=== PATIENT | female | born 1950 | race Caucasian/White ===

== ENCOUNTER 2018-02-15 15:00 | Inpatient (IN) | payer OTHER ==
[~2018-02-15] VITALS: Ht 160 cm; Wt 50.8 kg
--- NOTE | 2018-02-15 15:42 | ED GENERAL ADULT ---
History of Present Illness General Chief Complaint: Lower Extremity Injury Stated Complaint: LEFT LEG PAIN NO INJURY Source: patient, family Exam Limitations: no limitations Vital Signs & Intake/Output Vital Signs & Intake/Output Vital Signs Date Time Temp Pulse Resp B/P B/P Pulse O2 O2 Flow FiO2 Mean Ox Delivery Rate 02/17 0914 68 102/68 02/17 0355 98.0 73 20 104/68 98 02/17 0223 99.5 73 20 102/58 95 02/16 2300 98.4 74 18 102/60 96 Room Air 02/16 2100 98.0 68 18 106/66 99 Room Air 02/16 1447 98.4 67 18 110/60 96 Room Air ED Intake and Output 02/17 0000 02/16 1200 Intake Total 1225 600 Output Total Balance 1225 600 Intake, IV 1225 600 Allergies Coded Allergies: No Known Allergies (02/15/18) Triage Note: PT BIBA FROM HOME FOR C/C OF LEFT HIP PAIN. TWO WEEKS AGO PT FELT DISCOMFORT IN HER HIP AND THEN WENT TO ORTHO NOW WHO GAVE PT EXERCISES TO DO ON FRIDAY. TODAY, PT WAS UNABLE TO WALK NORMALLY. PT DOES HAVE OBVIOUS L LEFT ROTATION. BROUGHT COPY OF XRAY'S FROM ORTHO CLINIC THAT SHOWS A FRACTURE. Triage Nurses Notes Reviewed? yes Onset: Gradual Duration: day(s): Timing: recent history Severity Numbers: 9 HPI: Patient is a 67-year-old female presents the emergency department brought in by ambulance from [facility] in [place]. Patient states she has had gradual worsening left hip pain for the past 2 weeks radiating down her left groin. 2 days ago she went to a walk-in or [facility] where she was given an anti-inflammatory cream and exercises for strengthening. The pain became unbearable forcing her to go to [facility] today which she received x-rays for the first time revealing a left femoral neck fracture and DJD. Patient cannot weight-bear at this time, states pain is 9/10 on the pain scale. She has taken no medications at this point. Past medical surgical history are unremarkable she has no known drug allergies. She was sent here for a surgical consult with Dr. Jose Nolen. (Carlos RAO,Amilcar) Reconcile Medications Aspirin (Ecotrin*) 81 MG TABLET.DR 1 TAB PO DAILY heart health (Reported) Aspirin (Ecotrin*) 81 MG TABLET.DR 1 TAB PO BID ANTICOAGULATION Docusate Sodium (Colace) 100 MG CAPSULE 1 CAP PO BID CONSITPATION DISCONTINUE USE IF YOU DEVELOP LOOSE STOOL OR DIARRHEA Hydromorphone HCl (Dilaudid) 2 MG TABLET 1-2 TAB PO Q4-6 PRN PRN PAIN Losartan Potassium (Cozaar) 50 MG TABLET 1 TAB PO DAILY htn (Reported) Multiple Vitamin (Multivitamins) 1 EACH TABLET 1 TAB PO DAILY supplement ( Reported) Omeprazole Magnesium (Prilosec Otc) 20 MG TABLET.DR 1 TAB PO DAILY GI PROTECTION Polyethylene Glycol 3350 (Miralax) 17 GRAM POWD.PACK 1 PAC PO DAILY CONSTIPATION dissolve in water, DISCONTINUE USE IF YOU DEVELOP LOOSE STOOL OR DIARRHEA (Umberto Redd DO) Past History Travel History Traveled to [place] past 21 day No Medical History Any Pertinent Medical History? 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 No (Amilcar Junior) Review of Systems Review of Systems Constitutional: Denies: chills, diaphoresis, fever. EENTM: Denies: blurred vision, double vision, visual changes. Respiratory: Denies: cough, hemoptysis, short of breath. Cardiovascular: Denies: chest pain, edema, orthopena, palpitations. GI: Denies: abdominal pain, constipation, diarrhea. Genitourinary: Reports: no symptoms. Musculoskeletal: Reports: joint pain, muscle pain, muscle stiffness. Neurological/Psychological: Denies: numbness, paresthesia. (Amilcar Junior) Physical Exam Physical Exam General Appearance: well developed/nourished, no apparent distress, alert, awake , mild distress Head: atraumatic, normal appearance Eyes: Bilateral: normal appearance. Ears, Nose, Throat: hearing grossly normal Neck: normal inspection, supple, full range of motion Respiratory: chest non-tender, no respiratory distress Cardiovascular: regular rate/rhythm, normal peripheral pulses Extremities: limited range of motion Comments: Patient's left hip is obviously shortened and externally rotated. No manipulations or active movements will be attempted secondary to x-ray findings. Core Measures ACS in differential dx? No CVA/TIA Diagnosis: No Sepsis Present: No Sepsis Focused Exam Completed? No (Amilcar Junior) Progress Differential Diagnoses I considered the following diagnoses in my evaluation of the patient: [Left femoral neck fracture, osteoarthritis, avascular necrosis, sprain/strain, muscle tightness/spasm,] Plan of Care: Orders Procedure Date/time Status CBC WITHOUT DIFFERENTIAL 02/17 600 Active BASIC ELECTROLYTES PLUS BUN&CR 02/17 600 Active MISSING MEDICATION FORM 02/17 UNK Active Regular Diet 02/16 D Active VTE Mechanical Prophylaxis 02/16 UNK Active Activity/Ambulation 02/16 UNK Active Current Medications Sig/Efrain Start time Last Medication Dose Stop Time Status Admin Atorvastatin Calcium 20 MG 1700 02/17 1700 CAN (Lipitor) Losartan Potassium 50 MG DAILY 02/17 0900 AC 02/17 (Cozaar) 0914 Polyethylene Glycol 17 GM DAILY 02/17 0900 AC 02/17 (Miralax) 0859 Rosuvastatin Calcium 5 MG DAILY 02/17 0900 AC 02/17 (Crestor) 0858 Omeprazole 40 MG DAILY AC 02/17 0700 AC 02/17 (Prilosec) 0641 Aspirin Buffered 81 MG BID 02/16 2100 AC 02/17 (Ecotrin) 0859 Docusate Sodium 100 MG BID 02/16 2100 AC 02/17 (Colace) 0859 Acetaminophen 650 MG Q4P PRN 02/16 1715 AC (Tylenol) Hydromorphone HCl 2 MG Q4P PRN 02/16 1700 AC (Dilaudid) Hydromorphone HCl 4 MG Q4P PRN 02/16 1700 AC 02/17 (Dilaudid) 0641 Morphine Sulfate 2 MG Q2P PRN 02/15 1630 AC (MORPHINE SULFATE) Ondansetron HCl 4 MG Q6P PRN 02/15 1630 AC (Zofran) Promethazine HCl 12.5 MG Q6P PRN 02/15 1630 AC (Phenergen) 02/22 1629 67-year-old female presents to the emergency room with x-rays and hand, she is brought in by ambulance from [facility] in [place] this afternoon. Patient states she has had worsening hip pain for the past 2 weeks which is increased in the past 2 days prompting her to receive x-rays today which revealed a left femoral neck fracture with moderate to severe DJD in the left hip. Orthopedics was consulted, specifically Dr. Jose Haro. Orders were put in place for probable surgical correction. Ortho consulted whom agree with giving 1 g of IV Tylenol every 8 hours as needed until patient arrives to floor. Admit orders were placed by the orthopedic PA at approximately 4:30 PM Initial ED EKG: none (Amilcar Junior) Departure Departure Disposition: STILL A PATIENT Condition: Stable Clinical Impression Primary Impression: Femoral neck fracture Referrals: Unknown (PCP/Family) Departure Forms: Customer Survey General Discharge Information (Amilcar Junior) Departure Prescriptions: Current Visit Scripts Aspirin (Ecotrin*) 1 TAB PO BID #60 TAB Docusate Sodium (Colace) 1 CAP PO BID #14 CAP DISCONTINUE USE IF YOU DEVELOP LOOSE STOOL OR DIARRHEA Polyethylene Glycol 3350 (Miralax) 1 PAC PO DAILY #7 PAC dissolve in water, DISCONTINUE USE IF YOU DEVELOP LOOSE STOOL OR DIARRHEA Omeprazole Magnesium (Prilosec Otc) 1 TAB PO DAILY #30 TAB Hydromorphone HCl (Dilaudid) 1-2 TAB PO Q4-6 PRN PRN PAIN #36 TAB Admission Note Spoke With: Shola Nolen MD Documentation of Exam: Documentation of any treatments & extenuating circumstances including Concerns Regarding Discharge (functional status, medication knowledge or non-compliance, living conditions, etc.) that warrant an admission rather than observation: [The patient needs to be admitted for severe pain and inability to bear weight requiring IV narcotics for pain control and operative repair of her hip fracture ] I saw and personally examined the patient and I agree with the PAs evaluation PA/ICE CREAM CHEF Co-Sign Statement Statement: ED Attending supervision documentation- [x] I saw and evaluated the patient. I have also reviewed all the pertinent lab results and diagnostic results. I agree with the findings and the plan of care as documented in the PA's/ICE CREAM CHEF's documentation. [] I have reviewed the ED Record and agree with the PA's/ICE CREAM CHEF's documentation. [] Additions or exceptions (if any) to the PAs/ICE CREAM CHEF's note and plan are summarized below: [] (Umberto Redd DO) Critical Care Note Critical Care Note Critical Care Time: non-applicable (Amilcar Junior) ED Attending Observation Initial Observation Note: I have seen and personally examined ARIANA CUTLER on 02/15/18 at 1658. I agree with the current emergency department documentation. The disposition (admission or discharge) is uncertain at this time, she needs a period of observation for the following reason(s): The ED Nurse caring for this patient has been personally informed as to what the patient is being observed for. (Amilcar Junior)
[2018-02-15 15:53] LABS: PT 12.3 SEC (9.4-12.5)
[2018-02-15 15:54] LABS: PTT 29 SEC (25-37)
[2018-02-15 15:55] LABS: ABSOLUTE BASOPHIL COUNT 0.1 /CUMM (0.0-0.2); ABSOLUTE EOSINOPHIL COUNT 0 /CUMM (0.0-0.7); ABSOLUTE GRANULOCYTE CT 5.8 /CUMM (1.4-6.5); ABSOLUTE MONOCYTE COUNT 0.5 /CUMM (0.10-0.60); BASOPHIL % 0.8 % (0.0-2.0); EOSINOPHIL % 0.5 % (0-5); MEAN CORPUSCULAR HGB CONC 33.8 G/DL (33.0-37.0); MEAN CORPUSCULAR VOLUME 88.7 FL (81.0-99.0); PLATELET COUNT 320 /CUMM (130-400); RBC DISTRIBUTION WIDTH 14.3 % (11.5-14.5); RED BLOOD CELL CT 3.95 /CUMM (4.20-5.40); WHITE BLOOD CELL COUNT 7.4 /CUMM (4.8-10.8)
--- NOTE | 2018-02-15 16:22 | History & Physical Pre-Op ---
General Information and [facility] MD Statement: I have seen and personally examined PADMAJA CUTLER and documented this H&P. The patient is a 67 year old F who presented with a patient stated chief complaint of [LEFT HIP PAIN]. Source of Information: patient Exam Limitations: no limitations History of Present Illness: Padmaja is a very pleasant 67 year old female who presents to the ER today with complaints of left hip pain. Earlier today she was seen at [facility], an outpatient orthopedic clinic in [place], [place], and radiographs were obtained which showed evidence of a displaced femoral neck fracture. The sequence of events leading up to this fracture are multifactorial, she did not sustain one particular traumatic event. Per her recollection, approximately two weeks ago she was participating in an [employer] fitness class which included a weight lifting excercise that involved squatting and overhead weight lifting, she noticed some discomfort in her left groin and reduced her activity level. She then states that approximately one and one half weeks later, she was attempting to cee her dog who was involved in an altercation with another dog and her legs gave out, she did not fall, but noticed worsening discomfort. The following day she attempted to be seen at a different orthopedic clinic but chose to forego an exam due to length of wait. She returned to the clinic the next morning, was evaluated without radiographs, and was given some exercises to do. She found the exercises painful and was unable to walk around that day or the following day. Earlier today she was evaluated at [facility] and sent here to be admitted to Dr. Nolen's service. Her preinjury level of activity is high. She states that she belongs to two gyms and often works out twice daily. Activities include running, elliptical and rower, in addition to weight lifting. She denies any past medical or surgical history aside from ild hypertension and hyperlipidemia. She did mention that she was diagnosed with borderline anemia recently and was unable to donate blood. She was given slow Fe for treatement but was unable to tolerate the gi related side effects, mainly constipation. When asked about osteoporosis, she denies ever having bone density scan. She states she has never been told she is osteoporotic, only notes that she has osteoarthritis in various joints including hips and shoulders. From a medication standpoint, she is on daily losartan 50mg, a baby aspirin daily as well as a multivitamin, calcium supplement and tumeric. She inconsistently takes her statin for mild hyperlipidemia. She denies any allergies. Allergies/Medications Allergies: Coded Allergies: No Known Allergies (02/15/18) Home Med list Aspirin (Ecotrin*) 81 MG TABLET.DR 1 TAB PO DAILY heart health (Reported) Aspirin (Ecotrin*) 81 MG TABLET.DR 1 TAB PO BID ANTICOAGULATION Docusate Sodium (Colace) 100 MG CAPSULE 1 CAP PO BID CONSITPATION DISCONTINUE USE IF YOU DEVELOP LOOSE STOOL OR DIARRHEA Hydromorphone HCl (Dilaudid) 2 MG TABLET 1-2 TAB PO Q4-6 PRN PRN PAIN Losartan Potassium (Cozaar) 50 MG TABLET 1 TAB PO DAILY htn (Reported) Multiple Vitamin (Multivitamins) 1 EACH TABLET 1 TAB PO DAILY supplement ( Reported) Omeprazole Magnesium (Prilosec Otc) 20 MG TABLET.DR 1 TAB PO DAILY GI PROTECTION Polyethylene Glycol 3350 (Miralax) 17 GRAM POWD.PACK 1 PAC PO DAILY CONSTIPATION dissolve in water, DISCONTINUE USE IF YOU DEVELOP LOOSE STOOL OR DIARRHEA Past History Medical History Neurological: NONE EENT: NONE Cardiovascular: NONE Respiratory: NONE Gastrointestinal: NONE Hepatic: NONE Renal: NONE Musculoskeletal: ARTHRITIS Psychiatric: NONE Endocrine: NONE Blood Disorders: NONE Cancer(s): NONE POND SAWYER/Reproductive: NONE Surgical History Pertinent Surgical History: none Past Family/Social History Psychosocial History Where Do You Live? Home ETOH Use: denies use Illicit Drug Use: denies illicit drug use Functional Ability ADLs Independent: dressing, eating, toileting, bathing. Ambulation: independent IADLs Independent: shopping, housework, finances, food prep, telephone, transportation , medication admin. Review of Systems Review of Systems Constitutional: Reports: see HPI. EENTM: Reports: no symptoms. Cardiovascular: Reports: no symptoms. Respiratory: Reports: no symptoms. GI: Reports: constipation (only with iron supplement). Genitourinary: Reports: no symptoms. Musculoskeletal: Reports: see HPI, joint pain. Skin: Reports: no symptoms. Neurological/Psychological: Reports: no symptoms. Hematologic/Endocrine: Reports: no symptoms. Immunologic/Allergic: Reports: no symptoms. All Other Systems: Reviewed and Negative Exam & Diagnostic Data Last 24 Hrs of Vital Signs/I&O Vital Signs Date Time Temp Pulse Resp B/P B/P Pulse O2 O2 Flow FiO2 Mean Ox Delivery Rate 02/15 1526 Room Air Room Air 02/15 1508 98.2 65 15 135/90 95 Room Air Room Air Intake & Output 02/15 1600 02/15 0800 02/15 0000 Intake Total 0 Output Total Balance 0 Intake, Oral 0 Patient 112 lb Weight Weight Reported by Patient Measurement Method Physical Exam: General: Alert and oriented x3, no acute distress Cardiac: rrr, s1s2 Pulm: cta Abdomen: non-tender, non-distended Extremties: Moves all extremities, neurovascular status grossly intact. Left hip tender to palpation, left leg minimally shortend with mild external rotation. Skin integrity intact, some bruising noted. Thigh compartment soft, no concern for compartment syndrome at the present time. Assessment/Plan Assessment/Plan: This is a 67 year old female with no known medical history who presents to ER today for evaluation and management of a hip fracture that she sustained in all likelihood two weeks ago when working out. She noted worsened difficulty ambulating over the past two to three days, radiographs showed evidence of a displaced femoral neck fracture. Dr. Nolen has reviewed radiographs and has accepted admission of this patient to his service. -EKG, CXR -CBC, BEP, INR, T&S -medical consult for preoperative clearance -NPO p mn, will start iv fluids -IV tylenol/morphine for pain -Nonweightbearing pre op -Surgery tomorrow, zachary-arthroplasty versus SHANTHI, to be determined by Dr. Nolen As Ranked By This Provider Problem List: 1. Femoral neck fracture
[2018-02-15] MEDS ORDERED: COZAAR50 M1 PO (16:25)
[2018-02-15] MEDS ORDERED: ASPIRIN EC81 M1 PO (16:25)
[2018-02-15] MEDS ORDERED: MULTIVITAMINS1 EAC9 PO (16:26)
--- NOTE | 2018-02-15 16:27 | Admission Core Measures ---
Acute Coronary Syndrome (CM) ACS Core Measures Acute Coronary Syndrome Diagnosis No Congestive Heart Failure (NEW) CHF Core Measures Congestive Heart Failure Diagnosis No Cerebrovascular Accident CVA Core Measures CVA/TIA Diagnosis No Venous Thromboembolism VTE Core Dottie (View Protocol) VTE Risk Factors Surgery No Mechanical VTE Prophylaxis d/t N/A MechProphylax Ordered No VTE Pharm Prophylaxis d/t NA PharmProphylax ordered Problem List As ranked by this Provider includes Assessment & Plan 1. Femoral neck fracture HOME MEDS Home Med List Aspirin (Ecotrin*) 81 MG TABLET.DR 1 TAB PO DAILY heart health (Reported) Losartan Potassium (Cozaar) 50 MG TABLET 1 TAB PO DAILY htn (Reported) Multiple Vitamin (Multivitamins) 1 EACH TABLET 1 TAB PO DAILY supplement ( Reported)
--- NOTE | 2018-02-15 17:58 | RADIOLOGY REPORT ---
EXAMINATION: XR PORTABLE CHEST CLINICAL INFORMATION: Hip fracture COMPARISON: None TECHNIQUE: Portable frontal view of the chest was obtained. FINDINGS: No significant abnormality is noted involving the heart, lungs, mediastinum, bony thorax or soft tissues. IMPRESSION: No acute pulmonary disease.
[2018-02-15 18:15] VITALS: BP 120/68
--- NOTE | 2018-02-15 22:23 | Cons- Medical ---
Bala Loyd 02/15/18 2206: General Information and HPI Consulting Request Date of Consult: 02/15/18 Requested By: Shola Nolen MD Reason for Consult: Medical clearance for hip surgery Source of Information: patient Exam Limitations: no limitations History of Present Illness: This is a 67-year-old female with past medical history significant for hypertension, hyperlipidemia, arthritis presented to the hospital with chief complaint of left hip pain for 2 weeks. Medical team was requested for clearance before left hip surgery. Patient has a left hip pain for 2 weeks, acutely worsened over 2 days, which made her to come to the hospital for evaluation. Patient reports that she denies any traumatic event. Of note she states that 3 weeks ago when she was at gym doing weight lifting exercise she notices some discomfort in her left groin and then she reduced her activity level. She then states that approximately one and one half weeks later, she was attempting to cee her dog who was involved in an altercation with another dog and her legs gave out, she did not fall, but noticed worsening discomfort. She Went to outpatient clinic for her left hip pain, she was told to do some exercises. However given worsening and deteriorating pain, she went to Ortho clinic on Friday, x-ray left hip was done which showed femoral neck fracture. She was sent to ER for admission for hip surgery by Dr. alberto. Review of systems she denied any fever, chills, cough, chest pain, palpitations, nausea, vomiting, diarrhea, change in recent bladder or bowel habits. She denies smoking, alcohol abuse, illicit drug abuse. She has history of hypertension, takes losartan 50 daily and hyperlipidemia takes rosuvastatin 5 mg daily. She has history of osteoarthritis of various joints. However she never had any bone scan. Allergies/Medications Allergies: Coded Allergies: No Known Allergies (02/15/18) Home Med List: Aspirin (Ecotrin*) 81 MG TABLET.DR 1 TAB PO DAILY heart health (Reported) Losartan Potassium (Cozaar) 50 MG TABLET 1 TAB PO DAILY htn (Reported) Multiple Vitamin (Multivitamins) 1 EACH TABLET 1 TAB PO DAILY supplement ( Reported) Current Medications: Current Medications Sig/Efrain Start time Last Medication Dose Route Stop Time Status Admin Acetaminophen 0 .STK-MED ONE 02/16 1736 DC IV Acetaminophen 1,000 MG Q8P PRN 02/15 1730 AC 02/15 IV 1738 Dextrose/Sodium 1,000 ML Q13H 02/16 0000 AC Chloride IV Dextrose/Sodium 1,000 ML .[id number] 02/15 1630 DC Chloride IV Morphine Sulfate 4 MG Q2P PRN 02/15 1730 AC 02/15 IV 2203 Morphine Sulfate 2 MG Q2P PRN 02/15 1630 AC IV Ondansetron HCl 4 MG Q6P PRN 02/15 1630 AC IV Promethazine HCl 12.5 MG Q6P PRN 02/15 1630 AC IV 02/22 1629 Review of Systems Review of Systems Constitutional: Denies: chills, diaphoresis, fever, malaise, weakness, unexplained weight loss. EENTM: Denies: blurred vision, double vision, visual changes. Cardiovascular: Denies: chest pain, edema, orthopena, palpitations, peripheral edema, syncope. Respiratory: Denies: cough, hemoptysis, orthopnea, short of breath, sputum production, stridor. GI: Denies: abdominal pain, bloating, constipation, diarrhea, distention. Genitourinary: Denies: discharge, dysuria, frequency, hematuria. Musculoskeletal: Reports: joint pain. Denies: back pain, gout. Skin: Denies: erythema, jaundice. Neurological/Psychological: Denies: anxiety, emotional problems, headache, numbness. Past History Travel History Traveled to [place] past 21 day No Medical History Blood Transfusion Hx: No Neurological: NONE EENT: NONE Cardiovascular: NONE Respiratory: NONE Gastrointestinal: NONE Hepatic: NONE Renal: NONE Musculoskeletal: ARTHRITIS Psychiatric: NONE Endocrine: NONE Blood Disorders: NONE Cancer(s): NONE PINION STAKER/Reproductive: NONE Surgical History Surgical History: 1 Psychosocial History Where Do You Live? Home Smoking Status: Never Smoked ETOH Use: denies use Illicit Drug Use: denies illicit drug use Functional Ability ADLs Independent: dressing, eating, toileting, bathing. Ambulation: independent IADLs Independent: shopping, housework, finances, food prep, telephone, transportation , medication admin. Exam & Diagnostic Data Last 24 Hrs of Vital Signs/I&O Vital Signs Date Time Temp Pulse Resp B/P B/P Pulse O2 O2 Flow FiO2 Mean Ox Delivery Rate 02/15 1815 98.6 62 20 120/68 97 Room Air 02/15 1720 98.1 68 15 138/79 98 Room Air Room Air 02/15 1526 Room Air Room Air 02/15 1508 98.2 65 15 135/90 95 Room Air Room Air Intake & Output 02/15 1600 02/15 0800 02/15 0000 Intake Total 0 Output Total Balance 0 Intake, Oral 0 Patient 50.802 kg Weight Weight Reported by Patient Measurement Method Physical Exam General Appearance: well developed/nourished, no apparent distress, alert, awake , anxious Head: atraumatic, normal appearance Respiratory: normal breath sounds, chest non-tender, no respiratory distress, quiet respiration, lungs clear Cardiovascular: regular rate/rhythm, normal peripheral pulses Gastrointestinal: normal bowel sounds, soft, non-tender, no organomegaly Extremities: normal inspection, normal capillary refill, normal range of motion, no edema Other Physical Findings: Left hip tender to palpation, left leg minimally shortend with mild external rotation. Last 24 Hrs of Labs/Bernabe: Laboratory Tests 02/15/18 1535: Anion Gap 11, Estimated GFR > 60, BUN/Creatinine Ratio 38.3 H, Glucose 93, Calcium 10.3 H, Total Bilirubin 0.7, AST 37 H, ALT 34, Alkaline Phosphatase 68 , Total Protein 7.0, Albumin 4.4, Globulin 2.6, Albumin/Globulin Ratio 1.7, PT 12.3, INR 1.13, APTT 29, CBC w Diff NO MAN DIFF REQ, RBC 3.95 L, MCV 88.7, MCH 30.0, MCHC 33.8, RDW 14.3, MPV 8.0, Gran % 79.0 H, Lymphocytes % 13.3 L, Monocytes % 6.4, Eosinophils % 0.5, Basophils % 0.8, Absolute Granulocytes 5.8, Absolute Lymphocytes 1.0 L, Absolute Monocytes 0.5, Absolute Eosinophils 0, Absolute Basophils 0.1 Assessment/Plan Assessment/Plan This is a 67-year-old female with past medical history significant for hypertension, hyperlipidemia, arthritis presented to the hospital with chief complaint of left hip pain for 2 weeks. Medical team was requested for clearance of left hip surgery given evidence of displaced left femoral neck fracture. Vitals afebrile, heart rate 65, respiratory rate 15, blood pressure 130/90, saturating at 95 on room air Labs WBC 7, hemoglobin 11 and hematocrit 35, platelets 320 Sodium 139, potassium 4.1, BUN 23 and creatinine 0.6 LFTs normal limit Chest x-ray no acute cardiopulmonary findings 1. Left femoral neck fracture Patient presented with acute on chronic worsening left hip pain for 2 weeks. Outpatient x-ray showed displaced left femoral neck fracture. She was admitted under surgical service, planning hemiarthroplasty on 02/16/2018. Calculated RCR index-not high risk surgery, no history of ischemic heart disease , no history of heart failure, no history of TIA or stroke, not on insulin, creatinine less than 2-she has 0.4% risk of major cardiac event after the surgery. METS- She can do heavy work around the house, such as scrubbing floors or lifting or moving heavy furniture, or climb two flights of stairs, weightlifting at the gym, swimming with out getting short of breath 10 METS. * She is medically optimized for left hip surgery * Monitor vitals every shift * N.p.o. tonight * IV fluids * Adequate pain management * Follow-up primary team recommendations * CBCs, BEP, INR is normal limit * Please check baseline troponin and EKG prior to the surgery * Continue her home medications Hypertension continue losartan 50 daily Hyperlipidemia continue rosuvastatin 5 mg daily Continue aspirin 81 daily Full code DVT prophylaxis per primary team Problem List: 1. Femoral neck fracture Consult Acknowledgment - Thank you for your consult request. Yonny ZARATE,Dedrick Richard 02/16/18 0609: Assessment/Plan Consult Acknowledgment - Thank you for your consult request. Attending MD Review Statement Attending Statement Attending MD Statement: examined this patient, discuss w/resident/PA/WATER AEROBICS INSTRUCTOR, agreed w/resident/PA/WATER AEROBICS INSTRUCTOR Attending Assessment/Plan: 67 year-old female presents sent from outpatient orthopedic clinic for imaging evidence of a displaced femoral neck fracture. Seems a series of events over the last few weeks could be implicated: a particularly intensive workout at [employer] and an attempt to disengage her dog from an altercation seem to be chief amongst them. She was noticing groin discomfort that was limiting her usual activity levels. She is quite active at baseline, and does not appear limited from a cardiopulmonary standpoint in any fashion. She has no previous history of coronary artery disease, congestive heart failure, or pulmonary disease. Hypertension is controlled with EJ-I. EKG and CXR were reviewed and found to be without abnormality requiring intervention. She gives no history to suggest elevated risk with regard to proceeding to surgery, whether it be zachary- arthroplasty or total hip. She is not on a beta tk as an outpatient, and thus would not recommend starting one in the taya-operative setting. She is an acceptable risk to proceed to surgery without need for additional consultation or provocative testing. Stoney Blancas MD
[2018-02-15 22:36] VITALS: BP 102/68
[2018-02-16 07:09] VITALS: BP 100/70
--- NOTE | 2018-02-16 07:49 | PN- Medicine Consult ---
Poncho Cohen 02/16/18 0748: Assessment/PlanMedical Consult Assessment/Plan Assessment: This is a 67-year-old female with past medical history significant for hypertension, hyperlipidemia, arthritis presented to the hospital with chief complaint of left hip pain for 2 weeks. Medical team was requested for clearance before left hip surgery. Patient has a left hip pain for 2 weeks prior to presentation, that acutely worsened over 2 days, which made her to come to the hospital for evaluation. She denies any traumatic event.However, she states that 3 weeks ago when she was at gym doing weight lifting exercise she notices some discomfort in her left groin and then she reduced her activity level. She then states that approximately one and one half weeks later, she was attempting to cee her dog who was involved in an altercation with another dog and her legs gave out, she did not fall, but noticed worsening discomfort. She Went to outpatient clinic for her left hip pain, she was told to do some exercises. However given worsening and deteriorating pain, she went to Ortho clinic on Friday, x-ray left hip was done which showed femoral neck fracture. She was sent to ER for admission for hip surgery by Dr. alberto. Plan: This is a 67-year-old female with past medical history significant for hypertension, hyperlipidemia, arthritis presented to the hospital with chief complaint of left hip pain for 2 weeks. Medical team was requested for clearance of left hip surgery given evidence of displaced left femoral neck fracture. Her vitals and labs are stable, she is NPO for zachary-arthroplasty versus SHANTHI. per Dr layton 1. Left femoral neck fracture * Ms Mcdaniels, presented with acute on chronic worsening left hip pain for 2 weeks. * Outpatient x-ray showed displaced left femoral neck fracture. * Currently NPO * Calculated RCR index-not high risk surgery, no history of ischemic heart disease, no history of heart failure, no history of TIA or stroke, not on insulin, creatinine less than 2-she has 0.4% risk of major cardiac event after the surgery. * METS- She can do heavy work around the house, such as scrubbing floors or lifting or moving heavy furniture, or climb two flights of stairs, weightlifting at the gym, swimming with out getting short of breath 10 METS. * She is medically optimized for left hip surgery. * B/p this am 100/70, ct iv fluids while NPO and ct to monitor BP. * Ct current pain management. * Follow-up primary team recommendations. * CBCs, BEP, INR on 02/15 normal limit. * Today morning labs not repeated, repeat CBC, BEP postop tmrw. * Continue her home medications Hypertension :holding losartan for today, can restart postop dependign on BP Hyperlipidemia continue rosuvastatin 5 mg daily Continue aspirin 81 daily, post op AC per ortho Full code DVT prophylaxis per primary team Problem List: 1. Femoral neck fracture Subjective Subjective: I have seen and examined her this morning, She seems to be doing okay. Left hip pain well controlled, but appears/worse with any kind of movement. She is a little uphappy that she is last on the OR list, but otherwise doesnt have any new complaints to offer, currently NPO for OR Review of Systems Constitutional: Reports: see HPI. Objective Last 24 Hrs of Vital Signs/I&O Vital Signs Date Time Temp Pulse Resp B/P B/P Pulse O2 O2 Flow FiO2 Mean Ox Delivery Rate 02/16 0709 97.1 64 18 100/70 96 02/15 2236 98.7 66 18 102/68 95 Room Air 02/15 1815 98.6 62 20 120/68 97 Room Air 02/15 1720 98.1 68 15 138/79 98 Room Air Room Air 02/15 1526 Room Air Room Air 02/15 1508 98.2 65 15 135/90 95 Room Air Room Air Intake & Output 02/16 0800 02/16 0000 02/15 1600 Intake Total 600 200 0 Output Total Balance 600 200 0 Intake, IV 600 Intake, Oral 200 0 Patient 50.802 kg 50.802 kg Weight Weight Reported by Patient Reported by Patient Measurement Method Current Medications: Current Medications Sig/Efrain Start time Last Medication Dose Route Stop Time Status Admin Acetaminophen 0 .STK-MED ONE 02/15 1736 DC IV Acetaminophen 1,000 MG Q8P PRN 02/15 1730 AC 02/15 IV 1738 Dextrose/Sodium 1,000 ML Q13H 02/16 0000 AC 02/16 Chloride IV 0051 Dextrose/Sodium 1,000 ML .[id number] 02/15 1630 DC Chloride IV Morphine Sulfate 4 MG Q2P PRN 02/15 1730 AC 02/15 IV 2203 Morphine Sulfate 2 MG Q2P PRN 02/15 1630 AC IV Ondansetron HCl 4 MG Q6P PRN 02/15 1630 AC IV Promethazine HCl 12.5 MG Q6P PRN 02/15 1630 AC IV 02/22 1629 Results Last 24 Hrs Lab/Bernabe Results: Laboratory Tests 02/15/18 1535: Anion Gap 11, Estimated GFR > 60, BUN/Creatinine Ratio 38.3 H, Glucose 93, Calcium 10.3 H, Total Bilirubin 0.7, AST 37 H, ALT 34, Alkaline Phosphatase 68 , Total Protein 7.0, Albumin 4.4, Globulin 2.6, Albumin/Globulin Ratio 1.7, PT 12.3, INR 1.13, APTT 29, CBC w Diff NO MAN DIFF REQ, RBC 3.95 L, MCV 88.7, MCH 30.0, MCHC 33.8, RDW 14.3, MPV 8.0, Gran % 79.0 H, Lymphocytes % 13.3 L, Monocytes % 6.4, Eosinophils % 0.5, Basophils % 0.8, Absolute Granulocytes 5.8, Absolute Lymphocytes 1.0 L, Absolute Monocytes 0.5, Absolute Eosinophils 0, Absolute Basophils 0.1 Evin ZARATE,[facility] 02/16/18 1203: Attending MD Review Statement Attending Sign Off Attending Cosign Statement: I have: examined this patient, reviewed [facility] EMR data, personally reviewd images, discussd w/resident/PA/PART TIME RECEPTIONIST, discussed mgmt plan w/[place], discussed mgmt plan w/pt, agreed w/resident/PA/PART TIME RECEPTIONIST, amended to note. Other Findings: Patient seen and examined, doing okay. She is not complaining of any pain if she does not move. Her vital signs are stable. As noted in the resident note, patient has 0.4% risk of major cardiac event. She also has good MET scoring. We recommend to continue patient's home medications. Otherwise no further cardiac testing is indicated at this time prior to her surgery. Will encourage early physical therapy and incentive spirometry after the surgery.
[2018-02-16 14:47] VITALS: BP 110/60
[2018-02-16] MEDS ORDERED: PRILOSEC OTC20 M1 PO (17:08)
[2018-02-16] MEDS ORDERED: MIRALAX17 G1 PO (17:08)
[2018-02-16] MEDS ORDERED: DILAUDID2 M1 PO (17:08)
[2018-02-16] MEDS ORDERED: ASPIRIN EC81 M1 PO (17:08)
[2018-02-16] MEDS ORDERED: COLACE100 M1 PO (17:08)
--- NOTE | 2018-02-16 17:10 | Patient Discharge Instructions ---
Discharge Instructions General Discharge Information You were seen/treated for: Left hip femoral neck fracture You had these procedures: Left total hip replacement Watch for these problems: Increasing pain despite the use of pain medication Increasing redness, warmth or swelling Drainage of any type from incision Inability to bear weight on operative leg Persistent nausea and vomiting Fever greater than 101.5 degrees Do not soak the wound: Yes No bath, but you may shower: Yes Other wound care: Please keep wound clean and dry. No ointments or lotions of any type on or near incision at any time. No exceptions. Your dressing will be changed by your nurse on the second day after your surgery. Daily dry dressing changes are recommended each day thereafter. Do not soak your wound in a bath or pool at any time until otherwise indicated by your surgeon. You may shower, please dry wound immediately after shower with a clean towel. Special Instructions: Aspirin: You are taking this medication to help prevent blood clot formation. Please take with food to protect your stomach lining. Please take as directed. Constipation: Pain medication can cause constipation. Your surgeon has recommended that you take Colace and miralax each day. You may discontinue this medication if you develop loose stool or diarrhea. If you wish to continue this medication, it is available over the counter. If you are unable to move your bowels after several days, if you are unable to pass gas and are developing bloating, nausea, or vomiting as a result, please contact your doctor. Diet Continue normal diet: Yes Recommended Diet: Regular Additional DIET Information: Advance as tolerated Activity Full Activity/No Limits: No Activity Self Limited: Yes Pounds, do NOT lift more than: 10 Acute Coronary Syndrome Inclusion Criteria At DC or during hospital stay patient has or had the following: ACS DIAGNOSIS No Discharge Core Measures Meds if any: Prescribed or Continued at Discharge Meds if any: NOT Prescribed or Continued at Discharge Congestive Heart Failure Inclusion Criteria At DC or during hospital stay patient has or had the following: CHF DIAGNOSIS No Discharge Core Measures Meds if any: Prescribed or Continued at Discharge Meds if any: NOT Prescribed or Continued at Discharge Cerebrovascular accident Inclusion Criteria At DC or during hospital stay patient has or had the following: CVA/TIA Diagnosis No Discharge Core Measures Meds if any: Prescribed or Continued at Discharge Meds if any: NOT Prescribed or Continued at Discharge Venous thromboembolism Inclusion Criteria VTE Diagnosis No VTE Type NONE VTE Confirmed by (Test) NONE Discharge Core Measures - Per Current guidelines, there needs to be overlap - treatment for the first 5 days of Warfarin therapy. - If discharged on Warfarin prior to 5 days of - overlap therapy, the patient will need to be - assessed for post discharge needs including - *Post discharge parental anticoagulation - *Warfarin and/or parental anticoagulation education - *Follow up date to check INR post discharge At least 5 days overlap therapy as Inpatient No Meds if any: Prescribed or Continued at Discharge Note: Overlap Therapy is Warfarin and Anticoagulant Meds if any: NOT Prescribed or Continued at Discharge
--- NOTE | 2018-02-16 17:12 | Surgical Discharge Summary ---
Visit Information Visit Dates Admission Date: 02/15/18 History of Present Illness Chief Complaint: Left hip femoral neck fracture Medical History Blood Transfusion Hx: No Neurological: NONE EENT: NONE Cardiovascular: NONE Respiratory: NONE Gastrointestinal: NONE Hepatic: NONE Renal: NONE Musculoskeletal: ARTHRITIS Psychiatric: NONE Endocrine: NONE Blood Disorders: NONE Cancer(s): NONE IPHONE DEVELOPER/Reproductive: NONE History of MRSA: No History of VRE: No History of CDIFF: No Isolation History: Standard Surgical History Pertinent Surgical History: none Psychosocial History Where Do You Live? Home Who Do You Live With? Patient/Self What is Your Primary Language? Kyrgyz ETOH Use: denies use Review of Systems: See H&P Hospital Course Course Attending Physician: Shola Nolen MD Primary Care Physician: Unknown Hospital Course: Patient was admitted to the hospital with a left femoral neck fracture on 2017. The following day she underwent a total hip replacement. The procedure was tolerated well and patient was transferred to a general surgical floor. Diet was advanced and tolerated. The patient was evaluated and treated by physical therapy. At the time of hospital discharge, the vital signs were stable, neurovascular status was intact, and pain was controlled with the use of oral pain medications. Allergies: Coded Allergies: No Known Allergies (02/15/18) Disposition Summary Disposition Principal Diagnosis: Left hip femoral neck fracture Additional Diagnosis: None Discharge Disposition: home health services Discharge Instructions General Discharge Information Code Status: Full Code Patient's Diet: Regular. advance as tolerated Patient's Activity: WBAT Follow-Up Instructions/Appts: Follow up with Dr. Nolen in 6 weeks from date of surgery. Please call office to arrange &/or confirm this appointment. Medications at Discharge Discharge Medications: Stop taking the following medications: Aspirin (Ecotrin*) 81 MG TABLET. ORAL DAILY Continue taking these medications: Losartan Potassium (Cozaar) 50 MG TABLET 1 Tablet ORAL DAILY Multiple Vitamin (Multivitamins) 1 EACH TABLET 1 Tablet ORAL DAILY Start taking the following new medications: Aspirin (Ecotrin*) 81 MG TABLET. 1 Tablet ORAL TWICE DAILY Qty = 60 No Refills Docusate Sodium (Colace) 100 MG CAPSULE 1 Capsule ORAL TWICE DAILY Qty = 14 No Refills Instructions: DISCONTINUE USE IF YOU DEVELOP LOOSE STOOL OR DIARRHEA Polyethylene Glycol 3350 (Miralax) 17 GRAM POWD.PACK 1 Packet ORAL DAILY Qty = 7 No Refills Instructions: dissolve in water, DISCONTINUE USE IF YOU DEVELOP LOOSE STOOL OR DIARRHEA Omeprazole Magnesium (Prilosec Otc) 20 MG TABLET.DR 1 Tablet ORAL DAILY Qty = 30 No Refills Hydromorphone HCl (Dilaudid) 2 MG TABLET 1-2 Tablet ORAL EVERY 4-6 HOURS NEEDED as needed for PAIN Qty = 36 No Refills
--- NOTE | 2018-02-16 17:57 | Operative Report ---
Operative/Inv Procedure Report Surgery Date: 02/16/18 Name of Procedure: Left total hip replacement Pre-Operative Diagnosis: Left displaced femoral neck fracture Post-Operative Diagnosis: Same Estimated Blood Loss: 250 Surgeon/Escalator Service Mechanic: Callum ZARATE,Shola Carlin Anesthesia: block Operative/Procedure Note Note: Description of Procedure: The patient was taken to the operating room and positively identified. After induction of spinal anesthesia and administration of appropriate pre-operative antibiotics, the patient was positioned supine on the operating room table and all bony prominences were well padded. After performing a surgical timeout, the left lower extremity was prepped and draped in the usual sterile fashion. A direct anterior approach was made to the left hip. The incision was carried sharply through superficial soft tissues to the level of the fascia. Meticulous hemostasis was maintained with Bovie electocautery. The fascia over the tensor fascia joe muscle was opened sharply and the interval between the TFL and the sartorius was entered bluntly taking care to stay lateral to the lateral femoral cutaneous nerve. Retractors were placed around the femoral neck and the pericapsular fat was identified. The ascending branches of the lateral femoral circumflex vessels were identified and carefully coagulated. The pericapsular fat and anterior capsule were then resected. The fracture site was exposed and the remainder of the femoral neck was osteotomized with the use of a sagittal saw. The femoral head was then removed without difficulty. Attention was then turned to the acetabulum. After appropriate placement of retractors, the acetabulum was exposed. Soft tissue was cleaned from the acetabular margin and notch. Overhanging osteophytes were removed and the teardrop was exposed. The acetabulum was then sequentially reamed to accept a 52 mm Paul Tritanium hemispherical solid shell. This was impacted into place in the appropriate position and fitted with a 36 mm Trident X3 zero degree polyethylene insert. Attention was then turned to the femur. After performing the appropriate ligament releases, the proximal femur was exposed. It was then sequentially broached to accept a size #4 [place] Accolade II stem. This was trialed for leg length and stability. The trial component was removed and the final component was impacted into place. The trunnion was carefully cleaned and fit with a 36 mm, +2.5 Biolox delta ceramic femoral head. The hip was reduced and put through a full range of motion and found to be stable. The articular space was then irrigated with sterile saline. The periarticular soft tissues were infilitrated with Marcaine. The fascial layer was closed with interrupted #1 vicryl suture and the skin was re-approximated with interrupted 2 -0 vicryl. The skin was closed with a running 3-0 V-Lock suture. Steri-strips and a sterile dressing were applied. The patient was awakened and taken to the recovery room in satisfactory condition.
--- NOTE | 2018-02-16 19:06 | RADIOLOGY REPORT ---
EXAMINATION: XR HIP, LEFT CLINICAL INFORMATION: Postoperative left hip COMPARISON: None TECHNIQUE: Three views of the left hip. FINDINGS: A total left hip prosthesis is present. The prosthesis appears in good position. No fractures or dislocations are seen. IMPRESSION: Normal-appearing left hip total prosthesis
[2018-02-16 21:00] VITALS: BP 106/66
[2018-02-16 23:00] VITALS: BP 102/60
[2018-02-17 02:23] VITALS: BP 102/58
[2018-02-17 03:55] VITALS: BP 104/68
--- NOTE | 2018-02-17 07:24 | PN- Orthopedic ---
Subjective Subjective: Minimal complaints of pain, no acute events overnight. Has been ambulatory. Voiding well. Tolerating by mouth. Wishes to be discharged home today Objective Vital Signs and I&Os Vital Signs Date Time Temp Pulse Resp B/P B/P Pulse O2 O2 Flow FiO2 Mean Ox Delivery Rate 02/17 0355 98.0 73 20 104/68 98 02/17 0223 99.5 73 20 102/58 95 02/16 2300 98.4 74 18 102/60 96 Room Air 02/16 2100 98.0 68 18 106/66 99 Room Air 02/16 1447 98.4 67 18 110/60 96 Room Air 02/16 0800 Room Air Intake & Output 02/17 0802/17 0000 02/16 1600 02/16 0800 02/16 0000 02/15 1600 Intake Total 750 700 525 600 200 0 Output Total Balance 750 700 525 600 200 0 Intake, IV 750 700 525 600 Intake, Oral 200 0 Patient 112 lb 112 lb Weight Weight Reported by Patient Reported by Patient Measurement Method Physical Exam: Well-developed well-nourished no apparent distress. HEENT: Atraumatic, extraocular motion intact Neck: Supple, no lymphadenopathy Respiratory: No respiratory distress Extremities: No edema Left lower extremity hip dressing in place, Dressing clean dry and intact Mild thigh swelling No signs of infection. No shortening or rotation Hip range of motion is limited and without unexpected pain Neurovascularly intact distally Bilateral calves are supple, nontender. Neuro: Alert and oriented x3 Psych: Mood affect normal, normal memory normal judgment. Skin: Warm and dry, no rash on exposed skin Results Last 48 Hours of Labs: Laboratory Tests 02/15 1535 Chemistry Sodium (137 - 145 mmol/L) 139 Potassium (3.5 - 5.1 mmol/L) 4.1 Chloride (98 - 107 mmol/L) 102 Carbon Dioxide (22 - 30 mmol/L) 26 Anion Gap (5 - 16) 11 BUN (7 - 17 mg/dL) 23 H Creatinine (0.5 - 1.0 mg/dL) 0.6 Estimated GFR (>60 ml/min) > 60 BUN/Creatinine Ratio (7 - 25 %) 38.3 H Glucose (65 - 99 mg/dL) 93 Calcium (8.4 - 10.2 mg/dL) 10.3 H Total Bilirubin (0.2 - 1.3 mg/dL) 0.7 AST (14 - 36 U/L) 37 H ALT (9 - 52 U/L) 34 Alkaline Phosphatase (<127 U/L) 68 Total Protein (6.3 - 8.2 g/dL) 7.0 Albumin (3.5 - 5.0 g/dL) 4.4 Globulin (1.9 - 4.2 gm/dL) 2.6 Albumin/Globulin Ratio (1.1 - 2.2 %) 1.7 Coagulation PT (9.4 - 12.5 SEC) 12.3 INR (0.90 - 1.19) 1.13 APTT (25 - 37 SEC) 29 Hematology CBC w Diff NO MAN DIFF REQ WBC (4.8 - 10.8 /CUMM) 7.4 RBC (4.20 - 5.40 /CUMM) 3.95 L Hgb (12.0 - 16.0 G/DL) 11.8 L Hct (37 - 47 %) 35.0 L MCV (81.0 - 99.0 FL) 88.7 MCH (27.0 - 31.0 PG) 30.0 MCHC (33.0 - 37.0 G/DL) 33.8 RDW (11.5 - 14.5 %) 14.3 Plt Count (130 - 400 /CUMM) 320 MPV (7.4 - 10.4 FL) 8.0 Gran % (42.2 - 75.2 %) 79.0 H Lymphocytes % (20.5 - 51.1 %) 13.3 L Monocytes % (1.7 - 9.3 %) 6.4 Eosinophils % (0 - 5 %) 0.5 Basophils % (0.0 - 2.0 %) 0.8 Absolute Granulocytes (1.4 - 6.5 /CUMM) 5.8 Absolute Lymphocytes (1.2 - 3.4 /CUMM) 1.0 L Absolute Monocytes (0.10 - 0.60 /CUMM) 0.5 Absolute Eosinophils (0.0 - 0.7 /CUMM) 0 Absolute Basophils (0.0 - 0.2 /CUMM) 0.1 Assessment/Plan Assessment/Plan Postop day #1 status post left total hip arthroplasty anterior approach secondary to left femoral neck fracture Perioperative antibiotics. Pain medication as needed. Out of bed Physical therapy, weightbearing as tolerated DC IV fluids Regular diet Follow a.m. labs Aspirin for DVT prophylaxis ALPS for DVT prophylaxis Regular home meds Dressing change postop day 2 Anticipate discharge home today if labs are acceptable and clears physical therapy Core Measures Venous Thromboembolism VTE Risk Factors Surgery No Mechanical VTE Prophylaxis d/t N/A MechProphylax Ordered No VTE Pharm Prophylaxis d/t NA PharmProphylax ordered
--- NOTE | 2018-02-17 07:27 | PN- Medicine Consult ---
Poncho Cohen 02/17/18 0726: Assessment/PlanMedical Consult Assessment/Plan Assessment: This is a 67-year-old female with past medical history significant for hypertension, hyperlipidemia, arthritis presented with chief complaint of left hip pain 2 weeks prior to presentation, after obtaining clearance, she was scheduled for total left hip replacement, she is now day 1 status post left total hip replacement for left displaced femoral neck fracture on 02/16/2018 She states she is doing good today, does not have any significant pain, her vitals today morning are stable, she will be working with physical therapy shortly, she is urinating fine, has not had a bowel movement, has tolerated by mouth fine. She does not have any new complaints to offer at this morning. Plan: 1. Left femoral neck fracture status post total knee replacement. * Continue regular diet. * Continue postoperative pain management, physical therapy, occupational therapy , wound care per surgery team. * All her home meds have been resumed, she was given a dose of losartan, Prilosec, Crestor, she has been tolerating them fine with stable vitals. * Temperature noted to be 98.0, pulse of 73, respiration of 20, blood pressure of 102/68. * Will need follow-up with primary care as well as orthopedic upon discharge. * Surgical team anticipates discharge today. * He needs to be continued on all her home medications upon discharge along with anticoagulation post left hip surgery per surgical team. * Continue incentive spirometry, patient has been doing it regularly 10 times every hour. * Labs were ordered but not sent this morning * Recommend checking CBC monitor H&H postop. 2. Fever Avery * She spiked a temperature to 100.2 * If spikes fever again send urine cultures,blood cultures,UA and CXR DVT prophylaxis. Continue PPI. Pain management. Problem List: 1. Femoral neck fracture 2. Status post total replacement of left hip Subjective Subjective: I have seen and examined the patient today morning, she seems to be doing GERD, tolerated diet well, pain is well controlled, no new complaints offered. Review of Systems Constitutional: Reports: see HPI. Objective Last 24 Hrs of Vital Signs/I&O Vital Signs Date Time Temp Pulse Resp B/P B/P Pulse O2 O2 Flow FiO2 Mean Ox Delivery Rate 02/17 0914 68 102/68 02/17 0355 98.0 73 20 104/68 98 02/17 0223 99.5 73 20 102/58 95 02/16 2300 98.4 74 18 102/60 96 Room Air 02/16 2100 98.0 68 18 106/66 99 Room Air 02/16 1447 98.4 67 18 110/60 96 Room Air Intake & Output 02/17 1600 02/17 0800 02/17 0000 Intake Total 750 700 Output Total Balance 750 700 Intake, IV 750 700 Physical Exam General Appearance: well developed/nourished, no apparent distress Head: atraumatic, normal appearance Cardiovascular: regular rate/rhythm Respiratory: normal breath sounds Peripheral Pulses: 2+ brachial (R), 2+ brachial (L), 2+ radial (R), 2+ radial (L) Abdomen: normal bowel sounds, soft, non-tender Back: normal inspection Extremities: dressing intact, present on left hip without drainage or oozing. Current Medications: Current Medications Sig/Efrain Start time Last Medication Dose Route Stop Time Status Admin Acetaminophen 650 MG Q4P PRN 02/16 1715 AC PO Acetaminophen 1,000 MG Q8P PRN 02/15 1730 DC 02/15 IV 1738 Aspirin Buffered 81 MG BID 02/16 2100 AC 02/17 PO 0859 Atorvastatin Calcium 20 MG 1700 02/17 1700 CAN PO Cefazolin Sodium 2 GM IQ8 02/17 0000 DC 02/17 N/A 1 UNIT IV 02/17 08 0858 Dextrose/Sodium 1,000 ML Q13H 02/16 0000 DC 02/17 Chloride IV 0655 Docusate Sodium 100 MG BID 02/16 2100 AC 02/17 PO 0859 Fentanyl Citrate 0 .STK-MED ONE 02/16 1642 DC .ROUTE Hydromorphone HCl 2 MG Q4P PRN 02/16 1700 AC PO Hydromorphone HCl 4 MG Q4P PRN 02/16 1700 AC 02/17 PO 0641 Losartan Potassium 50 MG DAILY 02/17 0900 AC 02/17 PO 0914 Midazolam HCl 0 .STK-MED ONE 02/16 1522 DC .ROUTE Morphine Sulfate 4 MG Q2P PRN 02/15 1730 DC 02/15 IV 2203 Morphine Sulfate 2 MG Q2P PRN 02/15 1630 AC IV Omeprazole 40 MG DAILY AC 02/17 0700 AC 02/17 PO 0641 Ondansetron HCl 4 MG Q6P PRN 02/15 1630 AC IV Patient Medication 1 ED ONE ONE 02/16 1145 DC 02/16 Teaching ED 02/16 1146 1238 Polyethylene Glycol 17 GM DAILY 02/17 0900 AC 02/17 PO 0859 Promethazine HCl 12.5 MG Q6P PRN 02/15 1630 AC IV 02/22 1629 Rosuvastatin Calcium 5 MG DAILY 02/17 0900 AC 02/17 PO 0858 Tranexamic Acid 0 .STK-MED ONE 02/16 1522 DC IV Results Last 24 Hrs Lab/Bernabe Results: .. Evin ZARATE,Maggie 02/17/18 1228: Attending MD Review Statement Attending Sign Off Attending Cosign Statement: I have: examined this patient, reviewed [facility] [employer] EMR data, personally reviewd images, discussd w/resident/PA/FRAME MAKER, discussed mgmt plan w/pt, agreed w/resident/ PA/FRAME MAKER, amended to note. Other Findings: Patient seen and examined, overall doing well. She did spike a low-grade temp this morning. She denies any pain. Recommend following up on the labs. Vital signs are stable. This postop fever could be due to postop stress. Encourage incentive spirometer. If patient continues to spike fever or if there is any increase in white blood cell count within recommend pursuing infection workup including checking urinalysis, urine culture, blood culture and chest x-ray. Postop care per orthopedic. Patient is kept on aspirin for DVT prophylaxis per orthopedic.
[2018-02-17 10:54] VITALS: BP 102/48
[2018-02-17 14:17] VITALS: BP 118/62
[2018-02-17 14:50] LABS: ABSOLUTE BASOPHIL COUNT 0 /CUMM (0.0-0.2); ABSOLUTE EOSINOPHIL COUNT 0 /CUMM (0.0-0.7); ABSOLUTE GRANULOCYTE CT 6.9 /CUMM (1.4-6.5); ABSOLUTE LYMPH COUNT 0.5 /CUMM (1.2-3.4); ABSOLUTE MONOCYTE COUNT 0.7 /CUMM (0.10-0.60); BASOPHIL % 0.4 % (0.0-2.0); EOSINOPHIL % 0.4 % (0-5); GRANULOCYTE % 84.1 % (42.2-75.2); HEMATOCRIT 31.1 % (37-47); MEAN CORPUSCULAR HGB CONC 33.5 G/DL (33.0-37.0); MEAN CORPUSCULAR VOLUME 89.5 FL (81.0-99.0); MEAN PLATELET VOLUME 7.9 FL (7.4-10.4); PLATELET COUNT 252 /CUMM (130-400); RBC DISTRIBUTION WIDTH 13.9 % (11.5-14.5); RED BLOOD CELL CT 3.48 /CUMM (4.20-5.40); WHITE BLOOD CELL COUNT 8.2 /CUMM (4.8-10.8)
== END 2018-02-17 17:00 | disposition home health service (06) | DRG 470 ==
LOC: ERH 15:00 → ERHI 17:02 → 2NA 17:02 → ENRESERV 17:03 → ENTRNSPT 17:49 → EDTRNSPTSTS 17:55 → EDTRNSPT 17:55 → 2NA 18:05 → CMPTRNSPT 18:10 → ENTRNSPT 02-16 19:15 → EDTRNSPT 02-16 19:23 → EDTRNSPTSTS 02-16 19:23 → CMPTRNSPT 02-16 19:45 → ENTRNSPT 02-17 16:36 → CMPTRNSPT 02-17 16:47 → 2NA 02-17 17:00
PROVIDERS: Nurse Practitioner; Physician Assistant
PROC: 0SRB04A Replacement of Left Hip Joint with Ceramic on Polyethylene Synthetic Substitute, Uncemented, Open Approach (ICD-10-PCS; principal; 2018-02-16)
DX: S72.002A Fracture of unspecified part of neck of left femur, initial encounter for closed fracture (principal); I10 Essential (primary) hypertension; E78.5 Hyperlipidemia, unspecified; D64.9 Anemia, unspecified; Z79.82 Long term (current) use of aspirin
CPT/HCPCS: 2NAP; 36592; 71045; 73502-LT; 82436; 93005; 93010; 97116-GO; 97161-GP; 97530-GO; J0131; J0690; J0735; J2405; J2550; J7042